=== PATIENT | male | born 1960 ===

== ENCOUNTER 2021-06-02 21:11 | Outpatient (REF) | payer MEDICAID, SELFPAY ==
[2021-06-02 22:07] LABS: Bilirubin Negative (Negative); Blood Negative (Negative); Clarity Clear (Clear); Glucose Negative (Negative); Ketones Negative (Negative); Leukocyte Esterase Negative (Negative); Nitrite Negative (Negative); Urobilinogen 0.2 EU/dL (Up TO 0.2)
== END 2021-06-02 21:12 | disposition home or self-care (01) ==
LOC: LBN 21:11
PROVIDERS: Visit Provider Naturopath
DX: R31.9 Hematuria, unspecified (principal)
CPT/HCPCS: 81003